=== PATIENT | female | born 1995 | race Caucasian/White ===

== ENCOUNTER 2022-04-10 15:27 | Emergency (ER) | payer OTHER ==
[~2022-04-10] VITALS: Ht 157.5 cm; Wt 72.6 kg
--- NOTE | 2022-04-10 15:30 | NUR ---
patient is in room 2. she is A/A/O x3
[2022-04-10 16:36] LABS: HEMATOCRIT 40.5 % (31.2-41.9); MEAN CORPUSCULAR HEMOGLOBIN 33.3 uug (24.7-32.8); MEAN CORPUSCULAR VOLUME 98.9 fL (75.5-95.3); PLATELET COUNT (AUTO) 317 K/uL (179-408)
[2022-04-10 16:43] LABS: CREATININE 0.6 mg/dL (0.6-1.3); POTASSIUM 4.2 mmol/L (3.5-5.1)
[2022-04-10 16:48] LABS: BILIRUBIN,TOTAL 0.6 mg/dL (0.2-1.0); TOTAL PROTEIN, SERUM 7.8 g/dL (6.4-8.2)
[2022-04-10 16:56] LABS: THYROID STIMULATING HORMONE 1.223 mIU/mL (0.358-3.740)
--- NOTE | 2022-04-10 18:59 | NUR ---
Awaiting test results
--- NOTE | 2022-04-10 19:30 | NUR ---
hand off report given to melyssa
--- NOTE | 2022-04-10 19:55 | NUR ---
Patient discharged to home in stable condition. Written and verbal after care instructions given. Patient verbalizes understanding of instructions. Stressed follow up or return to ER for worsening s/s. Patient walked out with steady gait.
[2022-04-10 19:56] VITALS: BP 132/72
== END 2022-04-10 19:58 | disposition home or self-care (01) ==
LOC: ER 15:27
DX: R51.9 Headache, unspecified (principal); Z86.16 Personal history of COVID-19; Z87.820 Personal history of traumatic brain injury
CPT/HCPCS: 36415; 70450; 71045; 84443; 85025; A4663

== ENCOUNTER 2022-04-13 13:45 | Emergency (ER) | payer OTHER ==
[~2022-04-13] VITALS: Ht 152.4 cm; Wt 72.6 kg
--- NOTE | 2022-04-13 14:03 | NUR ---
Dr Saleh at the bedside MSE.
--- NOTE | 2022-04-13 15:08 | NUR ---
Patient discharged to home in stable condition. Written and verbal after care instructions given. Patient verbalizes understanding of instructions. Stressed follow up or return to ER for worsening s/s.
[2022-04-13 15:09] VITALS: BP 144/65
== END 2022-04-13 15:09 | disposition home or self-care (01) ==
LOC: ER 13:45
DX: M54.12 Radiculopathy, cervical region (principal); Z87.820 Personal history of traumatic brain injury; Z86.16 Personal history of COVID-19
CPT/HCPCS: A4663

== ENCOUNTER 2022-06-14 13:55 | Emergency (ER) | payer BC, OTHER ==
[~2022-06-14] VITALS: Ht 157.5 cm; Wt 74.8 kg
--- NOTE | 2022-06-14 14:03 | NUR ---
Patient is AOx4, c/o right upper extremity pains. Patient said "Can I have vitamin IV?", pending MD evaluation, ANA MARÍA.
[2022-06-14] MEDS ORDERED: GABA300C PO (14:12)
[2022-06-14] MEDS ORDERED: VITA-287 PO (14:12)
--- NOTE | 2022-06-14 14:12 | NUR ---
SW Consult: SW spoke with pt and provided a consult per MD's request. Pt stated she was experiencing recent anxiety attacks that last about 30 minutes. Pt stated her brother recently and she just had a baby. Pt denied a depressed mood, denied suicidal and homicidal ideations. 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 In addition, pt stated she has great family support whom she lives with and friends. SW provided GRIEF AND BEREAVEMENT RESOURCES such as: [facility] , [place]; and mental health counseling resources which pt was very appreciative of. Such as, [facility] [address] [place] [address], ; [facility] [address] [place] [address], ; [facility] [address] [place] [address], ; a list of medical clinics: [facility] [address] [facility] [address], [place]. [place], ; [facility] [address] [facility], [facility] [address] [address]; [facility] [address] [place] [address], and more. A copy was placed in the pt's chart. Pt was very appreciative and stated her two friends are coming to provide transportation back to her home.
--- NOTE | 2022-06-14 14:27 | NUR ---
Patient discharged to home by Dr Garcia in stable condition with brisk steady gait. Written and verbal after care instructions given. Patient verbalized understanding and compliance of instructions. Stressed follow up with primary doctor and neurologist or return to ER for worsening s/s.
[2022-06-14 14:35] VITALS: BP 129/74
== END 2022-06-14 14:27 | disposition home or self-care (01) ==
LOC: ER 13:55
DX: G62.9 Polyneuropathy, unspecified (principal)
CPT/HCPCS: A4663